=== PATIENT | female | born 1940 | race Caucasian/White ===

== ENCOUNTER 2018-01-06 17:20 | Emergency (ER) | payer OTHER ==
[~2018-01-06] VITALS: Ht 162.6 cm; Wt 56.2 kg
[~2018-01-06 17:20] MED LIST: ANTIVERT25 M1; COZAAR100 MG
[2018-01-06] MEDS ORDERED: ATENOLOL100 MG (17:43)
== END 2018-01-06 22:23 | disposition home or self-care (01) ==
LOC: ER 17:20
DX: S00.03XA Contusion of scalp, initial encounter (principal); S60.222A Contusion of left hand, initial encounter; S10.83XA Contusion of other specified part of neck, initial encounter; S29.9XXA Unspecified injury of thorax, initial encounter; W01.198A Fall on same level from slipping, tripping and stumbling with subsequent striking against other object, initial encounter; Y93.89 Activity, other specified; Y92.815 Train as the place of occurrence of the external cause; Y99.8 Other external cause status